=== PATIENT | female | born 1990 | race Hispanic/Latino ===

== ENCOUNTER 2017-05-06 17:55 | Inpatient (IN) | payer OTHER ==
[~2017-05-06 17:55] MED LIST: Ondansetron HCl/PF 4 MG/2 ML Vial ONE; ePHEDrine/0.9% NaCl/PF SYRINGE 50 mg/10 ml ONE
[2017-05-06 18:29] VITALS: BMI 29.2
[2017-05-06] MEDS ORDERED: FLU VACC QS2017-18 36 mo. & older 0.5 ML SYRINGE IM ONE (18:45)
[2017-05-06 18:53] LABS: Amnisure Test RUPTURE DETECTED (No Rupture)
[2017-05-06 18:54] LABS: Amnisure Internal Control QC ACCEPTABLE (ACCEPTABLE)
[2017-05-06] MEDS ORDERED: Betamet Acet/Betamet Na Ph 30 MG/5 ML VIAL IM SCH (19:00)
[2017-05-06] MEDS ORDERED: Promethazine HCl 25 MG/ML VIAL IM PRN ×2 (19:28→20:26)
[2017-05-06] MEDS ORDERED: Ondansetron HCl/PF 4 MG/2 ML Vial IVP PRN ×3 (19:28→20:27)
[2017-05-06] MEDS ORDERED: Lactated Ringer's 1,000 ML IV SCH (19:30)
[2017-05-06] MEDS ORDERED: Bicitra 30 ML UDCUP PO SCH (19:30)
[2017-05-06] MEDS ORDERED: CEFAZOLIN/Water 2 GM/20 ML SYRINGE SLOW IVP SCH (19:30)
[2017-05-06] MEDS: Lactated Ringer's 1,000 ML IV SCH (19:39)
--- NOTE | 2017-05-06 19:50 | PDOC.LDHP ---
Labor and Delivery H&P Chief complaint: loss of fluid HPI: Pt is a 26yo @ 35 weeks who was seen in clinic today and complained of LOF x 3 days off an on. On exam there was no LOF w Valsalva and negative ferning, Amnisure sent to [facility] later reported back a positive for ROM. The pt was notified and presented to L and D where repeat Amnisure was positive and DEEPA approx 8cm. Current gestational age (weeks): 35 Due date: 06/10/17 Dating criteria: last menstrual period, second trimester ultrasound Grav: 2 Para: 1 OB History Details: CS in [place], failure to progress per pt history Current complications: other (limited PNC) Abnormal US findings: No Past Medical History: none Current medications: pre- vitamins Previous surgical history: low tranverse CS Allergies/Adverse Reactions: Allergies Allergy/AdvReac Type Severity Reaction Status Date / Time No Known Allergies Allergy Unverified 05/06/17 18:19 Social history: none - Physical Exam Vital signs reviewed and normal: yes General: resting Abdomen: gravid Extremeties: no edema - OB Labs Blood type: O RH: positive Antibody Screen: negative HIV: negative RPR: negative HEPSAg: negative 1 hour GCT: negative GBS: unknown Rubella: immune - Assessment L&D Assessment: premature rupture of membranes - Plan Plan: admit to L&D, to OR for section, anesthesia consult for pain management -: A/P: @ 35 weeks w PPROM suspected 3 days ago. Due to prolonged rupture, GA > 34 weeks will move to delivery. Pt counseled during care and desires RCS.
[2017-05-06 19:59] LABS: Mean Corpuscular HGB CONC 34.5 g/dL (32.0-36.0); Mean Corpuscular Hemoglobin 30.9 pg (27.0-31.0); Mean Corpuscular Volume 89.7 fl (81.0-99.0); Mean Platelet Volume 8.2 fL (7.4-10.4); Platelet Count 174 thou/uL (130-400); RBC Distribution Width 14.7 % (11.5-14.5); Red Blood Cell (RBC) Count 3.87 mill/uL (4.20-5.40); White Blood Cell (WBC) Count 9.1 thou/uL (4.8-10.8)
[2017-05-06] MEDS ORDERED: Eucerin (Mineral Oil/Petrolatum,White) 30 gm Jar TOP PRN (20:26)
[2017-05-06] MEDS ORDERED: diphenhydrAMINE 50 MG/ML VIAL IVP PRN (20:26)
[2017-05-06] MEDS ORDERED: Promethazine HCl 25 MG SUPP PR PRN (20:26)
[2017-05-06] MEDS ORDERED: Naloxone HCl 0.4 mg/ml Vial IVP PRN ×2 (20:26)
[2017-05-06] MEDS ORDERED: Ketorolac Tromethamine 30 MG/ML VIAL IVP PRN (20:26)
[2017-05-06] MEDS ORDERED: Naloxone HCl 0.4 mg/ml Vial IV PRN (20:26)
[2017-05-06] MEDS ORDERED: Meperidine HCl/PF 25 MG/ML VIAL SLOW IVP PRN (20:27)
[2017-05-06] MEDS ORDERED: HYDROmorphone 2 MG/ML VIAL SLOW IVP PRN (20:27)
[2017-05-06] MEDS ORDERED: Communication Order-Pharmacy FS SCH (20:30)
[2017-05-06] MEDS ORDERED: Ketorolac Tromethamine 30 MG/ML VIAL IVP SCH (20:30)
[2017-05-06] MEDS ORDERED: Oxytocin 10 UNITS/ML VIAL ONE ×2 (20:41→21:30)
[2017-05-06] MEDS ORDERED: ePHEDrine/0.9% NaCl/PF SYRINGE 50 mg/10 ml ONE (20:41)
[2017-05-06] MEDS ORDERED: Morphine PF 1 MG/ML SYR ONE (20:41)
--- NOTE | 2017-05-06 20:45 | ULT ---
OB ULTRASOUND: 05/06/17 HISTORY: Premature rupture of membranes. There is a single viable intrauterine . Gestational age by ultrasound is 36 week, 1 day. Biometry measurements are consistent. BPD: 36 week, 6 day HC: 36 week, 5 day AC: 35 week, 2 day FL: 36 week, 2 day EFW: 2803 grams consistent with 37 week, 1 day. Placenta: Fundal. Presentation: Vertex. heart rate: 139 beats per minute. Amniotic fluid: DEEPA is slightly reduced recorded at 8.2 cm. Intracranial contents appear unremarkable as imaged. The four chamber heart is confirmed. Three vesse l cord is confirmed. Urinary bladder is identified and is mildly distended. IMPRESSION: 36 week, 1 day gestation by ultrasound measurement. No abnormality identified. POS: EWELINA
[2017-05-06 20:46] LABS: Syphilis Antibody Nonreactive (Nonreactive); Syphilis Antibody Index 0.03 S/CO (<1.00 Non-Reactive)
[2017-05-06] MEDS ORDERED: Ondansetron HCl/PF 4 MG/2 ML Vial ONE (20:56)
--- NOTE | 2017-05-06 21:40 | PDOC.OPDEL ---
OB Operative/Delivery Note Delivery Dr/Surgeon: Adryan Assist: Light, DOCUMENTATION WRITER/CNM Pre-Delivery Diagnosis: ruptured membrane (PPROM) Weeks gestation: 35 - Findings A Sex: female Weight: 6 lb 8 oz - 1 min: 8 - 5 min: 9 - Additional Findings/Plan Placenta delivered: manual removal findings: low transverse hysterotomy without extension, normal uterus, normal tubes, normal ovaries Estimated blood loss: 750ml Compilations/Other Findings: presented to clinic w ROM 3 days prior per hx Post delivery plan: routine recovery
[2017-05-06 23:46] LABS: HBSAg Index 0.62 S/CO (0-0.99); Hep B Surf Ag Non-Reactive S/CO (NonReactive)
[2017-05-07] MEDS ORDERED: LR w/ Pitocin 40 units/1000 ML BAG IV SCH (00:55)
[2017-05-07] MEDS ORDERED: diphenhydrAMINE 25 MG CAP PO PRN (00:55)
[2017-05-07] MEDS ORDERED: Bisacodyl 10 MG SUPP PR PRN (00:55)
[2017-05-07] MEDS ORDERED: Ondansetron HCl/PF 4 MG/2 ML Vial IVP PRN ×2 (00:55→02:18)
[2017-05-07] MEDS ORDERED: Acetaminophen/Codeine 30-300mg Tablet PO PRN ×2 (00:55)
[2017-05-07] MEDS ORDERED: Acetaminophen 325 MG TAB PO PRN (00:55)
[2017-05-07] MEDS ORDERED: Lanolin Ointment 7 GM TUBE TOP PRN (00:55)
[2017-05-07] MEDS ORDERED: Meperidine HCl/PF 25 MG/ML VIAL IM PRN (00:55)
[2017-05-07] MEDS ORDERED: Adacel (T-DAP) 0.5 ML VIAL IM ONE (00:55)
[2017-05-07] MEDS ORDERED: Promethazine HCl 25 MG/ML VIAL IM PRN ×2 (00:55→02:18)
--- NOTE | 2017-05-07 01:41 | OP ---
DATE OF PROCEDURE: 05/06/2017 PREOPERATIVE DIAGNOSES: 1. G2, P1 at 35 weeks with premature rupture of membranes. 2. Previous section. 3. Declines trial of labor after section. 4. Insufficient care. POSTOPERATIVE DIAGNOSIS: Status post repeat low-transverse section. PROCEDURE PERFORMED: Repeat low-transverse section. SURGEON: Baldev Cornelius DO BIAS CUTTER: SASCHA Garcia ANESTHESIA: Spinal per Dr. William. COMPLICATIONS: None. ESTIMATED BLOOD LOSS: 750 mL. FINDINGS: 1. Female , Apgars 8 and 9, weight 6 pounds 8 ounces. 2. Normal-appearing uterus, tubes, and ovaries bilaterally. INDICATIONS FOR PROCEDURE: Ms. Jose Miguel Oh presented to the office today for her scheduled clinic v isit at 35 weeks complaining of leaking fluid for the last 3 days. Initial exam in the office was ne gative for rupture of membranes; however, her history was concerning and AmniSure was collected and s ent to the hospital. Her AmniSure reported positive for rupture of membranes. The patient was conta cted and returned to labor and delivery for further evaluation. On labor and delivery, she reported continued leaking of fluid and AmniSure was noted to be positive again. The patient was counseled fo r the recommendation for delivery and proceeded to the OR for a planned repeat section. PROCEDURE IN DETAIL: The patient was taken back to the OR with IV fluids running. Once she was in t he OR, spinal anesthesia was obtained and the patient was placed in dorsal supine position with a lef t lateral tilt. A Choi catheter was placed by the nurse using sterile technique. The abdomen was p repped and draped in normal fashion for section and surgeons were scrubbed in. The abdomen was tested and anesthesia was found to be adequate. A Pfannenstiel skin incision was made with the s calpel. The skin incision was carried down through the subcutaneous tissue to the fascia. Once the fascia was reached, it was incised in the midline and extended superolaterally using curved Rbuin scis sors. Rafaela clamps were placed at the superior border of the fascia, which was then dissected off t he rectus abdominis muscles in both cephalad and caudad directions allowing adequate delivery for the . The rectus muscles were in the midline. The peritoneum was tented off the abdome n with Rubin scissors and entered with blunt dissection technique. Peritoneum was then stretched late rally. An Geraldo O retractor was placed into the abdominal cavity for retraction, visualization, and protection of the wound. A bladder flap was created using Metzenbaum scissors and the bladder flap was dissected away from the planned hysterotomy site. A low-transverse hysterotomy was made with the scalpel and clear fluid was noted. With fundal pressure, the infant was delivered through the hyste rotomy without difficulty. Nose and mouth were suctioned. The cord was doubly clamped and cut, and the was handed off to special care nurses in attendance. Cord blood was collected. The place nta was delivered. Uterus was exteriorized, massaged to firm, and cleared of clot and debris with so me clean lap sponge. Uterus was returned to the abdominal cavity. Hysterotomy was inspected with no extensions noted. The hysterotomy was reapproximated with Monocryl suture in a running locked fashi on. After the hysterotomy was closed, it was inspected and no areas of bleeding were noted. Fundus of the uterus and lower uterine segment were noted to be very firm. The hysterotomy and paracolic gu tters were suctioned dry. The hysterotomy was again inspected with no bleeding noted. Initial lap c ount was done and was correct. The Geraldo retractor was then removed from the abdomino-peritoneal ca vity. The muscle belly and rectus fascia were inspected with no areas of bleeding noted. The fascia was reapproximated with PDS suture from corner to corner in a running fashion. The subcutaneous tis lisa was then irrigated and dried. Any small areas of bleeding were controlled with Bovie cauterizati on. Subcutaneous tissue was reapproximated with plain gut suture. The skin was reapproximated with 4-0 Monocryl and dressed with Dermabond dressing. The patient tolerated the procedure well and there were no complications. Final lap count was correct. The patient was then cleaned and taken to astrid very room in good condition.
[2017-05-07] MEDS ORDERED: Ketorolac Tromethamine 30 MG/ML VIAL IVP PRN (02:18)
[2017-05-07] MEDS ORDERED: Naloxone HCl 0.4 mg/ml Vial IV PRN ×3 (02:18)
[2017-05-07] MEDS ORDERED: NO PO,IM,IV OR SC NARCOTICS FOR 12HR EXCEPT BY ANESTHESIA PO SCH (02:18)
[2017-05-07] MEDS ORDERED: Promethazine HCl 25 MG SUPP PR PRN (02:18)
[2017-05-07] MEDS ORDERED: diphenhydrAMINE 50 MG/ML VIAL IVP PRN (02:18)
[2017-05-07] MEDS ORDERED: Eucerin (Mineral Oil/Petrolatum,White) 30 gm Jar TOP PRN (02:18)
[2017-05-07] MEDS: Lactated Ringer's 1,000 ML IV SCH (04:17)
[2017-05-07 05:33] LABS: Hemoglobin 10.6 g/dL (12.0-16.0); Mean Corpuscular HGB CONC 33.8 g/dL (32.0-36.0); Mean Corpuscular Hemoglobin 30.5 pg (27.0-31.0); Mean Corpuscular Volume 90.3 fl (81.0-99.0); Mean Platelet Volume 7.8 fL (7.4-10.4); Platelet Count 141 thou/uL (130-400); RBC Distribution Width 14.5 % (11.5-14.5); Red Blood Cell (RBC) Count 3.47 mill/uL (4.20-5.40); White Blood Cell (WBC) Count 10.2 thou/uL (4.8-10.8)
--- NOTE | 2017-05-07 07:58 | PDOC.PP ---
Post Progress Note Post Day #: 1 Subjective: no well denies pain, reports minmal bleeding. PO intake tolerated: yes Flatus: no Ambulation: no Vital Signs (12 hours) Temp Pulse Resp BP Pulse Ox 05/07/17 04:15 98.0 F 71 18 105/62 99 05/07/17 02:30 97.9 F 73 18 108/63 97 05/07/17 01:40 98.0 F 74 18 112/75 100 05/07/17 00:30 98.7 F 69 18 117/63 98 05/06/17 20:00 98.7 F 68 20 Weight Weight 160 lb - Physical Examination General: NAD Cardiovascular: no m/r/g, RRR Respiratory: clear to auscultation bilaterally Abdominal: + bowel sounds (hypoactive) Fundus firm & at: Umblicus Skin: CS incision dry & intact Psychiatric: A&Ox3 Result Diagrams: 05/07/17 05:24 Additional Labs: Post Labs Blood Type O POSITIVE 05/06/17 19:54 Hep Bs Antigen Non-Reactive S/CO (NonReactive) 05/06/17 19:54 (1) Delivered by section Code(s): O82 - ENCOUNTER FOR DELIVERY WITHOUT INDICATION Status: Acute - Assessment/Plan A: NML exam [id number] s/p RCD P: Ambulation today, advance diet as tolerated Start pumping q2hrs Routine care
[2017-05-07] MEDS: Docusate Calcium (SURFAK) 240 MG CAP PO SCH ×2 (09:49→21:04)
[2017-05-07] MEDS: Prenatal Vitamin 1 TAB PO SCH (09:49)
[2017-05-07] MEDS: Ibuprofen 800 MG TAB PO SCH ×3 (09:49→21:04)
[2017-05-07] MEDS: Ferrous Sulfate 325 MG TAB PO SCH ×2 (09:49→23:48)
[2017-05-07] MEDS: Sodium Chloride 0.9% 10 ML ONE (18:39)
[2017-05-07] MEDS ORDERED: FLU VACC QS2017-18 36 mo. & older 0.5 ML SYRINGE IM ONE (21:00)
[2017-05-08] MEDS: Ibuprofen 800 MG TAB PO SCH ×3 (05:40→21:29)
[2017-05-08] MEDS ORDERED: Sodium Chloride 0.9% 10 ML ONE (05:45)
[2017-05-08] MEDS: Simethicone Chewable 80 MG TAB PO PRN ×2 (05:48→21:29)
[2017-05-08] MEDS: Sodium Chloride 0.9% 10 ML ONE (05:49)
[2017-05-08] MEDS: Prenatal Vitamin 1 TAB PO SCH (08:38)
[2017-05-08] MEDS: Docusate Calcium (SURFAK) 240 MG CAP PO SCH ×2 (08:38→21:28)
[2017-05-08] MEDS: Ferrous Sulfate 325 MG TAB PO SCH ×2 (08:49→19:05)
--- NOTE | 2017-05-08 13:43 | PDOC.PP ---
Post Progress Note Post Day #: 2 Subjective: pumping, doing well, min discomfort, no concerns PO intake tolerated: yes Flatus: yes Ambulation: yes Vital Signs (12 hours) Temp Pulse Resp BP BP Pulse Ox 05/08/17 12:05 98.1 F 82 18 102/63 98 05/08/17 08:12 97.9 F 79 16 05/08/17 07:30 97.9 F 79 16 92/59 L 98 05/08/17 05:45 97.9 F 79 20 92/57 L Weight Weight 160 lb - Physical Examination General: NAD Respiratory: non-labored breathing Abdominal: no distention Fundus firm & at: below umb Extremities: negative homans (B) Skin: CS incision dry & intact Neurological: no gross focal deficits Psychiatric: A&Ox3, normal affect Result Diagrams: 05/07/17 05:24 Additional Labs: Post Labs Blood Type O POSITIVE 05/06/17 19:54 Hep Bs Antigen Non-Reactive S/CO (NonReactive) 05/06/17 19:54 (1) 35 weeks gestation of Code(s): Z3A.35 - 35 WEEKS GESTATION OF Status: Acute (2) Delivered by section Code(s): O82 - ENCOUNTER FOR DELIVERY WITHOUT INDICATION Status: Acute (3) Limited care Code(s): O09.30 - SUPRVSN OF PREG W INSUFFICIENT ANTENAT CARE, UNSP TRIMESTER Status: Acute (4) premature rupture of membranes Code(s): O42.919 - PRETRM FRIDA ROM, UNSP TIME BETW RUPT AND ONST LABR, UNSP TRI Status: Acute - Assessment/Plan A/P: POP2, doing well and meeting goals, poss DC mom and tomorrow vs Thursday. Follow appointments made at [facility].
[2017-05-09] MEDS: Ibuprofen 800 MG TAB PO SCH ×2 (05:49→14:37)
--- NOTE | 2017-05-09 07:51 | DIS ---
DATE OF ADMISSION: 05/06/2017 DATE OF DISCHARGE: 05/09/2017 ADMITTING DIAGNOSES: Premature rupture of membranes and a history of previous . DISCHARGE DIAGNOSES: Premature rupture of membranes and a history of previous . PROCEDURE: Repeat lower transverse section. CONSULTATIONS: None. HOSPITAL COURSE: The patient is a 26-year-old female, who was sent to Labor and Delivery from clinic with concerns of premature rupture of membranes. After evaluation, the patient was diagnosed with p remature rupture of membranes, and given her gestational age of 35 weeks and history of previous C-se ction, the patient was delivered by a repeat . Her postoperative course has been uncomplica kanchan. Today, is postoperative day #. The patient reports she is tolerating p.o., voiding on her own, having decreased lochia, and good pain control. PHYSICAL EXAMINATION: VITAL SIGNS: This morning, blood pressure 98/57, temperature 98.5, pulse of 85, respiratory rate 16. GENERAL: She appears to be in no acute distress. She is alert and oriented and cooperative and plea amrita to interact with. HEENT: Head is normocephalic, atraumatic. ABDOMEN: Soft. Fundus is firm. Incision is clean, dry, and intact with suture. EXTREMITIES: Nont delmy, nonedematous. The patient will be discharged to home with ibuprofen to be taken as needed for pain. She has instru ctions to follow up with Dr. Cornelius in 2 weeks for a postoperative visit. She also has instructions t o seek medical attention sooner if she experiences fever, increasing pain, bleeding, redness, or drai nage at the incision site.
[2017-05-09] MEDS: Ferrous Sulfate 325 MG TAB PO SCH (09:25)
[2017-05-09] MEDS: Prenatal Vitamin 1 TAB PO SCH (09:25)
[2017-05-09] MEDS: Docusate Calcium (SURFAK) 240 MG CAP PO SCH (09:25)
[2017-05-09 09:44] VITALS: BP 110/62; TEMP 98.6
== END 2017-05-09 16:00 | disposition home or self-care (01) | DRG 766 ==
LOC: L&D/OP 17:55 → L&D 20:32 → 3SW 05-07 00:26
PROVIDERS: ADMIT Obstetrics & Gynecology; ATTEND Obstetrics & Gynecology
PROC: 10D00Z1 Extraction of Products of Conception, Low, Open Approach (ICD-10-PCS; principal; 2017-05-06)
DX: O34.219 Maternal care for unspecified type scar from previous cesarean delivery (principal); O09.30 Supervision of pregnancy with insufficient antenatal care, unspecified trimester; O42.919 Preterm premature rupture of membranes, unspecified as to length of time between rupture and onset of labor, unspecified trimester; Z3A.35 35 weeks gestation of pregnancy; Z37.0 Single live birth
CPT/HCPCS: 36415; 51702; 76815; 84112; 85027; 86780; 86850; 86900; 86901; 87081; 87340; 88307; 99285; A4216; J2274; J2310; J2405; J2590